=== PATIENT | female | born 1950 | race Caucasian/White ===

== ENCOUNTER 2024-09-13 16:56 | Emergency (ER) | payer MEDICARE, BC ==
[2024-09-13] MEDS: Diphtheria,Pertussis(Acell),Tetanus Vaccine 0.5 ML Syringe IM ONE (17:27)
== END 2024-09-13 17:56 | disposition home or self-care (01) ==
LOC: DL.ED 16:56
DX: L03.113 Cellulitis of right upper limb (principal); Z23 Encounter for immunization; Z88.8 Allergy status to other drugs, medicaments and biological substances; Z88.2 Allergy status to sulfonamides; Z79.899 Other long term (current) drug therapy; W55.01XA Bitten by cat, initial encounter
CPT/HCPCS: 90471; 90715; 99283; 99283-25